=== PATIENT | male | born 2000 | race African-American/Black ===

== ENCOUNTER 2019-06-07 19:37 | Emergency (ER) | payer MEDICAID, SELFPAY ==
[2019-06-07 19:42] VITALS: BP 151/83; PULSE 76; RESP 14; TEMP 37.5; O2SAT 100
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
== END 2019-06-07 20:40 | disposition home or self-care (01) ==
PROVIDERS: Emergency Provider Emergency Medicine
DX: J06.9 Acute upper respiratory infection, unspecified (principal)
CPT/HCPCS: 87804; 99283

== ENCOUNTER 2019-07-30 02:34 | Emergency (ER) | payer MEDICAID, SELFPAY ==
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
[2019-07-30 02:32] VITALS: BP 105/76; PULSE 108; RESP 16; TEMP 36.8; O2SAT 100
--- NOTE | 2019-07-30 02:39 | ECG_ITS ---
Measurements Intervals [place] Rate: 106 P: 48 KS: 164 QRS: 17 QRSD: 108 T: 35 QT: 357 QTc: 474 Interpretive Statements SINUS TACHYCARDIA NONSPECIFIC ST ELEVATION IN DIFFUSE LEADS BASELINE WANDER- I, III ABNORMAL ECG Electronically Signed On 07-30-2019 8:10:32 CDT by Balwinder Solano D.O.
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
--- NOTE | 2019-07-30 03:13 | PC.NURSE ---
report taken from cailin valle at this time.
--- NOTE | 2019-07-30 03:26 | PC.NURSE ---
pt attempting to pull cords out of monitor and monitor off wall at this time.
--- NOTE | 2019-07-30 03:27 | PC.NURSE ---
sitter placed at bedside at this time.
[2019-07-30 03:37] LABS: Add Urine Microscopic? NO; Appearance Urine Clear (Clear); Bilirubin Urine Negative (Negative); Blood Urine Negative (Negative); Color Urine Colorless (Yellow); Glucose Urine UA Negative (Negative); Ketones Urine Negative (Negative); Leukocyte Esterase Ur Negative LEU/UL (Negative); Nitrate Urine Negative (Negative); Protein Urine Negative (Negative); RBC Urine 0-2 /hpf (0-2); Specific Grav Ur 1.005 (1.001-1.035); Urobilinogen Urine Negative mg/dL (<2.0); WBC Urine 0-3 /hpf
--- NOTE | 2019-07-30 03:40 | PC.NURSE ---
pt up in room standing at sink refusing to get in bed, pt asked multiple times to get in bed, refuses each time. pt then begins to do push ups on floor, md present. pt then gets back on stretcher.
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
--- NOTE | 2019-07-30 03:59 | PC.NURSE ---
pt screaming from room I can't take this shit! Get me out of these!
--- NOTE | 2019-07-30 04:05 | PC.NURSE ---
pt continues to thrash and scream on stretcher at this time. sitter at bedside.
[2019-07-30] MEDS: HALOPERIDOL LACTATE 5 MG/ML VIAL IM (04:07)
[2019-07-30] MEDS: MIDAZOLAM HCL 2 MG/2 ML VIAL IV PUSH (04:08)
[2019-07-30 04:27] LABS: Basophils Percent Auto 0.4 % (0.2-1.2); Eosinophils Percent Auto 0.3 % (0-4.4); Hematocrit 45.1 % (42.0-52.0); Hemoglobin 14.2 g/dL (14.0-18.0); Immature Granulocyte Absolute 0.07 K/mm3 (0.00-0.031); Immature Granulocyte Percent A 0.8 % (0-0.5); Lymphocytes Absolute Auto 2.23 K/mm3 (0.9-3.2); Lymphocytes Percent Auto 23.9 % (18.3-44.2); Mean Corpuscular HGB Conc 31.5 g/dl (32-36); Mean Corpuscular Volume 79.4 fl (80-100); Monocytes Absolute Auto 0.7 K/mm3 (0.1-0.6); Monocytes Percent Auto 7.9 % (2.6-8.5); Neutrophils Absolute Auto 6.2 K/mm3 (1.3-6.7); Neutrophils Percent Auto 66.7 % (45.5-73.1); Platelet Count Result 287 k/mm3 (150-375); Red Blood Count 5.68 M/mm3 (4.6-6.20); Red Cell Distribution Width 15.4 % (11.5-14.5); White Blood Count 9.3 K/mm3 (4.5-10.0)
[2019-07-30] MEDS: LORAZEPAM INJ 2 MG/ML VIAL IM (04:33)
[2019-07-30 04:37] LABS: Alanine Aminotransferase 34 U/L (4-50); Alkaline Phosphatase 66 U/L (38-126); Aspartate Amino Transferase 29 U/L (17-59); Bilirubin,Total 0.3 mg/dL (0.2-1.3); Blood Urea Nitrogen 11 mg/dL (9-20); Calcium 9.3 mg/dL (8.4-10.2); Carbon Dioxide 21 mmol/L (22-30); Chloride 105 mmol/L (98-107); Estimated CRCL calculation 124 ml/min; Estimated Glomerular Filt Rate > 60; Glucose 120 mg/dL (75-110); Potassium 3.6 mmol/L (3.4-5.0); Sodium 142 mmol/L (137-145)
[2019-07-30 04:48] LABS: Acetaminophen < 10 ug/mL (10-30); Ethanol 170 mg/dL (<10); Salicylate < 1.0 mg/dL (2-20)
[2019-07-30 04:58] LABS: Amphetamine Screen Urine Negative (Negative); Barbiturate Screen Urine Negative (Negative); Benzodiazepines Screen Urine Negative (Negative); Cannabinoid Screen Urine Negative (Negative); Cocaine Screen Urine Negative (Negative); Methadone Screen Urine Negative (Negative); Opiate Screen Urine Negative (Negative); Phencyclidine Screen Urine Negative (Negative)
--- NOTE | 2019-07-30 05:08 | PC.NURSE ---
UNABLE TO GET VITALS ON PATIENT AT THIS TIME DUE TO THRASHING IN BED.
[2019-07-30 05:39] VITALS: BP 128/65; PULSE 78; RESP 19; O2SAT 100
[2019-07-30 07:30] VITALS: BP 99/63; PULSE 68; RESP 16; O2SAT 96
--- NOTE | 2019-07-30 07:48 | PC.NURSE ---
Pt resting with eyes closed and even rise and fall of chest. Pt has sitter in place. Pt assessment to be completed upon pt waking.
[2019-07-30 08:15] VITALS: BP 102/78; PULSE 75; RESP 16; O2SAT 100
[2019-07-30 09:07] LABS: Ethanol 123 mg/dL (<10)
--- NOTE | 2019-07-30 11:13 | PC.NURSE ---
Pt states he has been eating normally and has had normal BM for him. Pt ate eggs and fernandez this morning. Pt was playing with siblings last night and today. Pt father at bedside. Call light in reach
[2019-07-30 12:30] LABS: Ethanol 81 mg/dL (<10)
[2019-07-30 13:32] VITALS: BP 122/73; PULSE 118; RESP 20; O2SAT 100
== END 2019-07-30 13:36 | disposition home or self-care (01) ==
PROVIDERS: Emergency Medicine; Emergency Provider Emergency Medicine
DX: R45.6 Violent behavior (principal); F10.129 Alcohol abuse with intoxication, unspecified; Y90.6 Blood alcohol level of 120-199 mg/100 ml; R00.0 Tachycardia, unspecified; R94.31 Abnormal electrocardiogram [ECG] [EKG]
CPT/HCPCS: 36415; 70450; 80053; 80307; 81003; 84443; 85025; 93005; 96372; 96374; 99284; J1200; J1630; J2060; J2250